=== PATIENT | male | born 1995 | race Caucasian/White ===

== ENCOUNTER 2018-04-11 01:07 | Emergency (ER) | payer BC ==
[2018-04-11] MEDS ORDERED: KETOROLAC 30 MG/ML INJ ONE (01:27)
--- NOTE | 2018-04-11 01:40 | EDPHYS ---
Physician Documentation [facility] Name: Cam Perez Age: 23 yrs Sex: Male : 1995 Arrival Date: 04/11/2018 Time: 01:08 Bed 6 Private MD: ED Physician Abdulaziz Ferro HPI: 04/11 01:26 This 23 yrs old Male presents to ER via Ambulatory with complaints of Ear tw4 Pain - right severe. 01:26 The patient presents with pain, a " 10" out of "10". The complaints affect the right tw4 ear. Onset: The symptoms/episode began/occurred 2 day(s) ago. Modifying factors: The symptoms are alleviated by nothing, the symptoms are aggravated by touching. Associated signs and symptoms: The patient has no apparent associated signs or symptoms. Severity of symptoms: At their worst the symptoms were moderate in the emergency department the symptoms. The patient has experienced a previous episode. The patient has been recently seen at an urgent care, yesterday. Historical: - Allergies: :22 No Known Allergies; jd3 - Home Meds: 01:22 None [Active]; jd3 - PMHx: :22 None; jd3 - PSHx: 01:22 None; jd3 - Immunization history:: Adult Immunizations up to date. - Social history:: Smoking status: Patient uses tobacco products, reported stopping about a month ago. - Ebola Screening: : Patient negative for fever greater than or equal to 101.5 degrees Fahrenheit, and additional compatible Ebola Virus Disease symptoms. ROS: 01:26 Constitutional: Negative for fever, chills, and weight loss. tw4 01:26 Neck: Negative for injury, pain, and swelling, Cardiovascular: Negative for chest pain, palpitations, and edema, Respiratory: Negative for shortness of breath, cough, wheezing, and pleuritic chest pain, Abdomen/GI: Negative for abdominal pain, nausea, vomiting, diarrhea, and constipation. 01:26 ENT: Positive for ear pain. Exam: 01:26 Constitutional: This is a well developed, well nourished patient who is awake, alert, tw4 and in no acute distress. Head/Face: Normocephalic, atraumatic. Eyes: Pupils equal round and reactive to light, extra-ocular motions intact. Lids and lashes normal. Conjunctiva and sclera are non-icteric and not injected. Cornea within normal limits. Periorbital areas with no swelling, redness, or edema. 01:26 ENT: External ear(s): are unremarkable, Ear canal(s): are normal, TM's: bulging, on the right, decreased mobility, on the right, dullness, on the right, erythema, that is moderate, Examination of the other ear shows no obvious abnormality. 01:26 Neck: External neck: is normal, ROM/movement: is normal, Lymph nodes: no appreciated lymphadenopathy. Vital Signs: 01:22 BP 138 / 88; Pulse 80; Resp 17 S; Temp 98.2(O); Pulse Ox 99% on R/A; Weight 104.33 kg jd3 (R); Height 5 ft. 10 in. (177.80 cm) (R); Pain 10/10; 01:22 Body Mass Index 33.00 (104.33 kg, 177.80 cm) jd3 MDM: 01:11 Patient medically screened. tw4 01:26 Differential diagnosis: otitis media, otitis externa, ruptured TM, acute otalgia, tw4 cerumen impaction, barotrauma . Data reviewed: vital signs, nurses notes. 01:40 Counseling: I had a detailed discussion with the patient and/or guardian regarding: the tw4 historical points, exam findings, and any diagnostic results supporting the discharge/admit diagnosis. Medication response: Toradol partially relieved the patient's pain. Response to treatment: the patient's symptoms have mildly improved after treatment, and as a result, I will discharge patient. Special discussion: I discussed with the patient/guardian in detail that at this point there is no indication for admission to the hospital. It is understood, however, that if the symptoms persist or worsen the patient needs to return immediately for re-evaluation. Based on the history and exam findings, there is no indication for further emergent testing or inpatient evaluation. I discussed with the patient/guardian the need to see the ENT specialist for further evaluation of the symptoms. ED course: Pt currently taking antibiotics as an outpatient will have patient followup with PCP for possible ENT referral. Administered Medications: 01:29 Drug: TORadol 60 mg Route: IM; Site: right gluteus; mg2 01:48 Follow up: Response: No adverse reaction jd3 Disposition: 04/11/18 01:39 Discharged to Home. Impression: Otalgia, right ear, Otitis media, unspecified, right ear. - Condition is Stable. - Discharge Instructions: Otitis Media, Adult. - Prescriptions for Ibuprofen 800 mg Oral Tablet - take 1 tablet by ORAL route every 8 hours As needed take with food; 30 tablet. Tylenol- Codeine #4 300-60 mg Oral Tablet - take 1 tablet by ORAL route every 6 hours As needed; 6 tablet. - Medication Reconciliation Form, Thank You Letter, Antibiotic Education, Prescription Opioid Use form. - Follow up: Private Physician; When: As needed; Reason: Recheck today's complaints, Continuance of care, Re-evaluation by your physician. - Problem is an ongoing problem. - Symptoms have improved. Signatures: Calderon Winslow RN RN jd3 Abdulaziz Ferro MD MD tw4 Abdiel Xie RN RN mg2 Corrections: (The following items were deleted from the chart) 01:49 01:39 04/11/2018 01:39 Discharged to Home. Impression: Otalgia, right ear; Otitis jd3 media, unspecified, right ear. Condition is Stable. Forms are Medication Reconciliation Form, Thank You Letter, Antibiotic Education, Prescription Opioid Use. Follow up: Private Physician; When: As needed; Reason: Recheck today's complaints, Continuance of care, Re-evaluation by your physician. Problem is an ongoing problem. Symptoms have improved. tw4
--- NOTE | 2018-04-11 01:40 | ER ---
Nurse's Notes [facility] Name: Cam Perez Age: 23 yrs Sex: Male : 1995 Arrival Date: 04/11/2018 Time: 01:08 Bed 6 Private MD: Diagnosis: Otalgia, right ear;Otitis media, unspecified, right ear Presentation: 04/11 01:18 Presenting complaint: Patient states: "I went to urgent care yesterday with this sever jd3 right ear pain I'm having and was told I have an ear infection and was given antibiotics and some ear drops. I don't think this is an ear infection because it hasn't gotten better and it is hurting even worse.". Transition of care: patient was not received from another setting of care. Onset of symptoms was April 09, 2018. Risk Assessment: Do you want to hurt yourself or someone else? Patient reports no desire to harm self or others. Initial Sepsis Screen: Does the patient meet any 2 criteria? No. Patient's initial sepsis screen is negative. Does the patient have a suspected source of infection? No. Patient's initial sepsis screen is negative. Care prior to arrival: None. 01:18 Method Of Arrival: Ambulatory jd3 01:18 Acuity: SARINA 4 jd3 Historical: - Allergies: 01:22 No Known Allergies; jd3 - Home Meds: 01:22 None [Active]; jd3 - PMHx: 01:22 None; jd3 - PSHx: 01:22 None; jd3 - Immunization history:: Adult Immunizations up to date. - Social history:: Smoking status: Patient uses tobacco products, reported stopping about a month ago. - Ebola Screening: : Patient negative for fever greater than or equal to 101.5 degrees Fahrenheit, and additional compatible Ebola Virus Disease symptoms. Screenin:14 Abuse screen: Denies threats or abuse. Denies injuries from another. Nutritional mg2 screening: No deficits noted. Tuberculosis screening: No symptoms or risk factors identified. Fall Risk None identified. Assessment: 01:23 General: Appears uncomfortable, Behavior is cooperative, appropriate for age, anxious. jd3 Pain: Complains of pain in right ear Pain currently is 10 out of 10 on a pain scale. Quality of pain is described as sharp, Pain began 2-3 days ago. Neuro: Level of Consciousness is awake, alert, obeys commands, Oriented to person, place, time, situation. Cardiovascular: Capillary refill < 3 seconds Patient's skin is warm and dry. Respiratory: Airway is patent Respiratory effort is even, unlabored, Respiratory pattern is regular, symmetrical. GI: No signs and/or symptoms were reported involving the gastrointestinal system. : No signs and/or symptoms were reported regarding the genitourinary system. EENT: Tympanic membrane reddened on right ear Ear canal clear on left ear and right ear. Derm: Skin is intact, Skin is dry, Skin is normal, Skin temperature is warm. Musculoskeletal: Circulation, motion, and sensation intact. Range of motion: intact in all extremities. 01:46 Reassessment: Patient appears in no apparent distress at this time. Patient and/or jd3 family updated on plan of care and expected duration. Pain level reassessed. Patient is alert, oriented x 3, equal unlabored respirations, skin warm/dry/pink. pt reported understanding of discharge instructions, even and steady gait upon discharge. Vital Signs: 01:22 BP 138 / 88; Pulse 80; Resp 17 S; Temp 98.2(O); Pulse Ox 99% on R/A; Weight 104.33 kg jd3 (R); Height 5 ft. 10 in. (177.80 cm) (R); Pain 10/10; 01:22 Body Mass Index 33.00 (104.33 kg, 177.80 cm) jd3 ED Course: 01:08 Patient arrived in ED. am2 01:11 Abdulaziz Ferro MD is Attending Physician. tw4 01:15 Patient has correct armband on for positive identification. Bed in low position. Noise mg2 minimized. 01:18 Calderon Winslow, STEPHEN is Primary Nurse. jd3 01:21 Triage completed. jd3 01:47 No provider procedures requiring assistance completed. Patient did not have IV access jd3 during this emergency room visit. 01:48 Arm band placed on. jd3 Administered Medications: 01:29 Drug: TORadol 60 mg Route: IM; Site: right gluteus; mg2 01:48 Follow up: Response: No adverse reaction jd3 Outcome: 01:39 Discharge ordered by . tw4 01:48 Discharged to home ambulatory. jd3 01:48 Condition: stable 01:48 Discharge instructions given to patient, Instructed on discharge instructions, follow up and referral plans. medication usage, Demonstrated understanding of instructions, follow-up care, medications, Prescriptions given X 2. 01:49 Patient left the ED. jd3 Signatures: Tiny Melendez Jonathon RN RN jd3 Abdulaziz Ferro MD MD tw4 Abdiel Xie RN RN mg2
== END 2018-04-11 01:49 | disposition home or self-care (01) ==
LOC: ER 01:07
DX: H66.91 Otitis media, unspecified, right ear (principal)
CPT/HCPCS: 96372; 99283

== ENCOUNTER 2018-04-26 22:33 | Emergency (ER) | payer BC ==
[2018-04-26] MEDS ORDERED: MECLIZINE HCL 12.5 MG TAB ONE (23:33)
[2018-04-26] MEDS ORDERED: ONDANSETRON 4 MG (ODT) TAB ONE (23:33)
[2018-04-27] MEDS ORDERED: DIAZEPAM 5 MG TABLET ONE (01:02)
[2018-04-27] MEDS ORDERED: AMOX/K CLAV 875 MG TAB ONE (01:03)
[2018-04-27 01:16] LABS: Urine Blood NEGATIVE (NEG); Urine Glucose NEGATIVE (NEG); Urine Protein NEGATIVE (NEG); Urine pH 6.5 (5.0-7.0)
--- NOTE | 2018-04-27 01:48 | EDPHYS ---
Physician Documentation [facility] Name: Cam Perez Age: 23 yrs Sex: Male : 1995 Arrival Date: 04/26/2018 Time: 22:34 Bed 30 Private MD: ED Physician Tom Rodríguez HPI: 04/26 23:24 This 23 yrs old Male presents to ER via Ambulatory with complaints of jmm Dizziness. 23:24 The patient presents with dizziness. Onset: The symptoms/episode began/occurred jmm acutely, 2 day(s) ago. 04/27 01:05 Modifying factors: The symptoms are alleviated by lying down, the symptoms are jmm aggravated by movement of head, standing up, changing position. Associated signs and symptoms:. This is a 23 year old male with no chronic medical conditions that presents to the ED with dizziness for the past 2 days. Symptoms developed acutely 2 days ago and are exacerbated with movement. Patient states that he feels like he is drunk. Patient recently finished antibiotic therapy for otitis media. . Historical: - Allergies: 04/26 22:47 No Known Allergies; ao - Home Meds: 22:47 None [Active]; ao - PMHx: 22:47 Otitis Media; ao - PSHx: 22:47 None; ao - Immunization history:: Adult Immunizations unknown, Last tetanus immunization: unknown. - Social history:: Smoking status: Patient uses tobacco products, smokes one-half pack cigarettes per day, Patient uses alcohol, occasionally. Patient/guardian denies using street drugs, IV drugs. - Ebola Screening: : Patient negative for fever greater than or equal to 101.5 degrees Fahrenheit, and additional compatible Ebola Virus Disease symptoms Patient denies exposure to infectious person Patient denies travel to an Ebola-affected area in the 21 days before illness onset. ROS: 04/27 01:05 Constitutional: Negative for fever, chills, and weight loss. jmm Cardiovascular: Negative for chest pain, palpitations, and edema, Respiratory: Negative for shortness of breath, cough, wheezing, and pleuritic chest pain, Abdomen/GI: Negative for abdominal pain, nausea, vomiting, diarrhea, and constipation, Back: Negative for injury and pain, : Negative for injury, bleeding, discharge, and swelling, MS/Extremity: Negative for injury and deformity, Skin: Negative for injury, rash, and discoloration. ENT: Positive for ear pain. Neuro: Positive for dizziness. All other systems are negative. Exam: 01:05 Head/Face: atraumatic. [facility] 01:05 Cardiovascular: Regular rate and rhythm. No gallops, murmurs, or rubs. Full/Equal distal pulses. Respiratory: Lungs have equal breath sounds bilaterally, clear to auscultation. No rales, rhonchi or wheezes noted. No increased work of breathing, no retractions or nasal flaring. Abdomen/GI: Soft, non-tender, with normal bowel sounds. No distension or tympany. No guarding or rebound. No evidence of tenderness throughout. 01:05 Constitutional: The patient appears in no acute distress, alert, awake. 01:05 Eyes: Nystagmus: horizontal nystagmus noted, fatigable . 01:05 Neck: ROM/movement: is normal. 01:05 Neuro: Orientation: is normal, Mentation: is normal, Memory: is normal, Cerebellar function: normal finger to nose testing. 01:05 Psych: Behavior/mood is pleasant, cooperative. Vital Signs: 04/26 22:48 BP 130 / 85; Pulse 61; Resp 16; Temp 97.9; Pulse Ox 97% on R/A; Weight 106.59 kg (R); ao Height 6 ft. 10 in. (208.28 cm) (R); Pain 0/10; 04/27 00:09 BP 128 / 83; Pulse 62; Resp 18; Pulse Ox 100% on R/A; Pain 0/10; ao 01:20 BP 104 / 59; Pulse 55; Resp 16; Pulse Ox 98% on R/A; Pain 0/10; ao 02:01 BP 108 / 62; Pulse 58; Resp 16; Pulse Ox 99% on R/A; Pain 0/10; ao 04/26 22:48 Body Mass Index 24.57 (106.59 kg, 208.28 cm) ao MDM: 04/26 23:08 Patient medically screened. [facility] 04/27 01:46 Data reviewed: vital signs, nurses notes, radiologic studies, CT scan. Counseling: I heavenly had a detailed discussion with the patient and/or guardian regarding: the historical points, exam findings, and any diagnostic results supporting the discharge/admit diagnosis, lab results, radiology results, the need for outpatient follow up, to return to the emergency department if symptoms worsen or persist or if there are any questions or concerns that arise at home. Response to treatment: the patient's symptoms have mildly improved after treatment. 04/27 01:12 Order name: Urine Dipstick--Ancillary (enter results); Complete Time: 01:18 eb 04/26 23:23 Order name: CT Head Brain wo Cont heavenly Administered Medications: 04/26 23:35 Drug: Meclizine 50 mg Route: PO; ao 04/27 00:39 Follow up: Response: No adverse reaction ao 04/26 23:35 Drug: Zofran 4 mg Route: PO; ao 04/27 00:39 Follow up: Response: No adverse reaction ao 01:06 Drug: Valium 5 mg Route: PO; ao 02:00 Follow up: Response: No adverse reaction ao 01:06 Drug: Augmentin 875 mg Route: PO; ao 02:00 Follow up: Response: No adverse reaction ao Disposition: 04/27/18 01:48 Discharged to Home. Impression: Other peripheral vertigo, right ear. - Condition is Stable. - Discharge Instructions: Dizziness, Vertigo, Kimmy Maneuver Self-Care. - Prescriptions for Augmentin 875- 125 mg Oral Tablet - take 1 tablet by ORAL route every 12 hours for 10 days; 20 tablet. Meclizine 25 mg Oral Tablet - take 1 tablet by ORAL route every 8 hours As needed; 30 tablet. - Medication Reconciliation Form, Thank You Letter, Antibiotic Education, Prescription Opioid Use form. - Follow up: Shana Tomlinson MD; When: 1 - 2 days; Reason: Continuance of care. Addendum: 04/28/2018 09:56 Co-signature as Attending Physician, Tom Rodríguez MD I agree with the assessment and c jacob plan of care. Signatures: Dispatcher [employer] EDTom Calzada MD MD cha Mickail, Joel, PA PA jmm Ortiz, Alex, RN RN ao Corrections: (The following items were deleted from the chart) 04/27 01:18 01:05 Eyes: Nystagmus: horizontal nystagmus noted, heavenly burdick 02:02 01:48 04/27/2018 01:48 Discharged to Home. Impression: Other peripheral vertigo, right ao ear. Condition is Stable. Forms are Medication Reconciliation Form, Thank You Letter, Antibiotic Education, Prescription Opioid Use. Follow up: Shana Tomlinson; When: 1 - 2 days; Reason: Continuance of care. heavenly
--- NOTE | 2018-04-27 01:48 | ER ---
Nurse's Notes [facility] Name: Cam Perez Age: 23 yrs Sex: Male : 1995 Arrival Date: 04/26/2018 Time: 22:34 Bed 30 Private MD: Diagnosis: Other peripheral vertigo, right ear Presentation: 04/26 22:44 Presenting complaint: Patient states: "I feel like I'm drunk but I'm not." Patient ao complains of dizziness. Patient reports a recent ear infection that was treated with unknown antibiotic. Patient reports ear infections has resolved. Transition of care: patient was not received from another setting of care. Onset of symptoms was April 25, 1900. Risk Assessment: Do you want to hurt yourself or someone else? Patient reports no desire to harm self or others. Initial Sepsis Screen: Does the patient meet any 2 criteria? No. Patient's initial sepsis screen is negative. Does the patient have a suspected source of infection? No. Patient's initial sepsis screen is negative. Care prior to arrival: None. 22:44 Method Of Arrival: Ambulatory ao 22:44 Acuity: SARINA 3 ao Historical: - Allergies: 22:47 No Known Allergies; ao - Home Meds: 22:47 None [Active]; ao - PMHx: 22:47 Otitis Media; ao - PSHx: 22:47 None; ao - Immunization history:: Adult Immunizations unknown, Last tetanus immunization: unknown. - Social history:: Smoking status: Patient uses tobacco products, smokes one-half pack cigarettes per day, Patient uses alcohol, occasionally. Patient/guardian denies using street drugs, IV drugs. - Ebola Screening: : Patient negative for fever greater than or equal to 101.5 degrees Fahrenheit, and additional compatible Ebola Virus Disease symptoms Patient denies exposure to infectious person Patient denies travel to an Ebola-affected area in the 21 days before illness onset. Screenin:50 Abuse screen: Denies threats or abuse. Denies injuries from another. Nutritional ao screening: No deficits noted. Tuberculosis screening: No symptoms or risk factors identified. Fall Risk None identified. Assessment: 22:49 General: Appears in no apparent distress. comfortable, Behavior is calm, cooperative, ao appropriate for age. Pain: Denies pain. Neuro: Level of Consciousness is awake, alert, obeys commands, Oriented to person, place, time, situation, Appropriate for age Moves all extremities. Speech is normal, Facial symmetry appears normal. Cardiovascular: Capillary refill < 3 seconds Patient's skin is warm and dry. Respiratory: Airway is patent Respiratory effort is even, unlabored, Respiratory pattern is regular, symmetrical. GI: Abdomen is obese. : No signs and/or symptoms were reported regarding the genitourinary system. EENT: No signs and/or symptoms were reported regarding the EENT system. Derm: Skin is intact, Skin is pink, warm \\T\\ dry. Skin temperature is warm. Musculoskeletal: Circulation, motion, and sensation intact. Range of motion:. 04/27 00:09 Reassessment: Patient appears in no apparent distress at this time. Patient and/or ao family updated on plan of care and expected duration. Pain level reassessed. Patient is alert, oriented x 3, equal unlabored respirations, skin warm/dry/pink. 01:20 Reassessment: Patient appears in no apparent distress at this time. Patient and/or ao family updated on plan of care and expected duration. Pain level reassessed. Patient is alert, oriented x 3, equal unlabored respirations, skin warm/dry/pink. Vital Signs: 04/26 22:48 BP 130 / 85; Pulse 61; Resp 16; Temp 97.9; Pulse Ox 97% on R/A; Weight 106.59 kg (R); ao Height 6 ft. 10 in. (208.28 cm) (R); Pain 0/10; 04/27 00:09 BP 128 / 83; Pulse 62; Resp 18; Pulse Ox 100% on R/A; Pain 0/10; ao 01:20 BP 104 / 59; Pulse 55; Resp 16; Pulse Ox 98% on R/A; Pain 0/10; ao 02:01 BP 108 / 62; Pulse 58; Resp 16; Pulse Ox 99% on R/A; Pain 0/10; ao 04/26 22:48 Body Mass Index 24.57 (106.59 kg, 208.28 cm) ao ED Course: 04/26 22:34 Patient arrived in ED. es 22:44 Christian Potts, RN is Primary Nurse. ao 22:46 Triage completed. ao 22:46 Arm band placed on right wrist. Patient placed in an exam room, on a stretcher, on ao pulse oximetry, Patient notified of wait time. 22:51 Patient has correct armband on for positive identification. Pulse ox on. NIBP on. ao 23:07 Kahlil Lizarraga PA is PHCP. jmm 23:07 Tom Rodríguez MD is Attending Physician. jmm 23:[address] via wheelchair. kw1 23:51 CT completed. Patient tolerated procedure well. Patient moved back from CT. kw1 23:55 CT Head Brain wo Cont In Process Unspecified. EDMS 04/27 01:47 Shana Tomlinson MD is Referral Physician. jmm 02:00 No provider procedures requiring assistance completed. Patient did not have IV access ao during this emergency room visit. Administered Medications: 04/26 23:35 Drug: Meclizine 50 mg Route: PO; ao 04/27 00:39 Follow up: Response: No adverse reaction ao 04/26 23:35 Drug: Zofran 4 mg Route: PO; ao 04/27 00:39 Follow up: Response: No adverse reaction ao 01:06 Drug: Valium 5 mg Route: PO; ao 02:00 Follow up: Response: No adverse reaction ao 01:06 Drug: Augmentin 875 mg Route: PO; ao 02:00 Follow up: Response: No adverse reaction ao Outcome: 01:48 Discharge ordered by . [facility] 02:01 Discharged to home ambulatory. ao 02:01 Condition: stable 02:01 Discharge instructions given to patient, Instructed on discharge instructions, follow up and referral plans. Demonstrated understanding of instructions, follow-up care, medications, Prescriptions given X 2. 02:02 Patient left the ED. ao Signatures: Dispatcher [employer] EDMS Kahlil Lizarraga PA PA jmm Salyer, Edna es Ortiz, Alex, RN RN ao Aydee Donahue kw1
--- NOTE | 2018-04-27 12:16 | RAD REPORT ---
EXAM DESCRIPTION: CT - Head Brain Wo Cont - 04/27/2018 7:24 am CLINICAL HISTORY: DIZZINESS Otitis media. Headache. COMPARISON: No comparisons TECHNIQUE: All CT scans are performed using dose optimization technique as appropriate and may inclu de automated exposure control or mA/KV adjustment according to patient size. FINDINGS: No intracranial hemorrhage, hydrocephalus or extra-axial fluid collection.No areas of brai n edema or evidence of midline shift. Fluid is noted in the right mastoid air cell suggesting mastoiditis. The paranasal sinuses and mastoi ds are otherwise clear. The calvarium is intact. IMPRESSION: No acute intracranial abnormality. Right-sided mastoiditis possible.
== END 2018-04-27 02:02 | disposition home or self-care (01) ==
LOC: ER 22:33
DX: H81.391 Other peripheral vertigo, right ear (principal); F17.210 Nicotine dependence, cigarettes, uncomplicated
CPT/HCPCS: 70450; 81003; 99284

== ENCOUNTER 2020-08-11 21:35 | Emergency (ER) | payer BC, OTHER ==
[2020-08-11 23:19] LABS: Absolute Lymphocytes (CBC) 2.4 K/uL (0.7-4.9); Basophils % 0.5 % (0-1.3); Hematocrit 44.4 % (39.6-49.0); Lymphocytes % 26.8 % (15.3-44.8); MPV 9.3 fL (7.6-11.3); RBC Red Blood Cell Count 5.23 M/uL (4.33-5.43)
[2020-08-11 23:20] LABS: Protime INR 0.96
[2020-08-11 23:40] LABS: ALT/SGPT 43 U/L (12-78); AST/SGOT 19 U/L (15-37); Albumin 4.5 g/dL (3.4-5.0); Alkaline Phosphatase 84 U/L (45-117); BUN Blood Urea Nitrogen 17 mg/dL (7-18); Bicarbonate 24 mmol/L (21-32); Bilirubin Direct 0.1 mg/dL (0-0.2); Bilirubin Total 0.5 mg/dL (0.2-1.0); Glucose Level 93 mg/dL (74-106); Magnesium 2.1 mg/dL (1.8-2.4); NT PRO-BNP 23 pg/mL (<125); Potassium 3.7 mmol/L (3.5-5.1); Protein, Total 8.4 g/dL (6.4-8.2); Sodium Level 141 mmol/L (136-145); Troponin (Emerg Dept Use Only) < 0.02 ng/mL (0.0-0.045)
--- NOTE | 2020-08-12 00:21 | ER ---
Nurse's Notes [facility] Name: Cam Perez Age: 25 yrs Sex: Male : 1995 Arrival Date: 08/11/2020 Time: 21:36 Bed 23 Private MD: Diagnosis: Vertigo of central origin, unspecified ear;Other idiopathic peripheral autonomic neuropathy Presentation: 08/11 21:42 Chief complaint: Patient states: Dizziness since Saturday. Right arm heaviness started ll1 today. Had CT scan at [place] Saturday, was negative. Diagnosed with vertigo. Noticed twitching to right arm and leg. Grasps equally strong. Gait steady. Smile symmetrical. No neuro deficits noted. Coronavirus screen: Client denies travel out of the [place] in the last 14 days. Client presents with at least one sign or symptom that may indicate coronavirus-19. Standard/surgical mask placed on the client. Coronavirus screen: Client reports previous positive COVID test result. Ebola Screen: Patient denies travel to an Ebola-affected area in the 21 days before illness onset. Initial Sepsis Screen: Does the patient meet any 2 criteria? No. Patient's initial sepsis screen is negative. Risk Assessment: Do you want to hurt yourself or someone else? Patient reports no desire to harm self or others. Onset of symptoms was August 06, 2020. 21:42 Method Of Arrival: Ambulatory ll1 21:42 Acuity: SARINA 3 ll1 Historical: - Allergies: 21:45 No Known Allergies; ll1 - PSHx: 21:45 None; ll1 - Immunization history:: Flu vaccine is not up to date. - Social history:: Smoking status: Patient reports the use of cigarette tobacco products, denies chronic smoking, but will smoke occasionally. Screenin:09 Abuse screen: Denies threats or abuse. Denies injuries from another. Nutritional aj1 screening: No deficits noted. Tuberculosis screening: No symptoms or risk factors identified. 08/12 00:42 Fall Risk None identified. aj1 Assessment: 08/11 22:09 General: Appears in no apparent distress. comfortable, Behavior is calm, cooperative, aj1 appropriate for age. Pain: Denies pain. Neuro: Level of Consciousness is awake, alert, obeys commands. Neuro: Oriented to person, place, time, situation, Instant [employer] Supervisor are equal bilaterally Moves all extremities. Weakness Gait is steady, Speech is normal, Facial symmetry appears normal, Reports dizziness, Patient states that his right arm feels "heavy" denies pain or weakness to right arm. Cardiovascular: Patient's skin is warm and dry. Respiratory: Airway is patent Respiratory effort is even, unlabored, Respiratory pattern is regular, symmetrical. GI: No signs and/or symptoms were reported involving the gastrointestinal system. : No signs and/or symptoms were reported regarding the genitourinary system. EENT: No signs and/or symptoms were reported regarding the EENT system. Derm: No signs and/or symptoms reported regarding the dermatologic system. Skin is pink, warm \\T\\ dry. normal. Musculoskeletal: No signs and/or symptoms reported regarding the musculoskeletal system. 23:21 Reassessment: Patient appears in no apparent distress at this time. No changes from 1 previously documented assessment. Patient and/or family updated on plan of care and expected duration. Pain level reassessed. Patient is alert, oriented x 3, equal unlabored respirations, skin warm/dry/pink. 08/12 00:28 Reassessment: Patient appears in no apparent distress at this time. No changes from aj1 previously documented assessment. Patient and/or family updated on plan of care and expected duration. Pain level reassessed. Patient is alert, oriented x 3, equal unlabored respirations, skin warm/dry/pink. Discharge pending MD explaining discharge instruction and diagnosis to patient. Vital Signs: 08/11 21:42 BP 131 / 78; Pulse 75; Resp 18; Temp 98.2; Pulse Ox 98% ; Weight 99.79 kg; Height 5 ft. ll1 10 in. (177.80 cm); Pain 0/10; 23:30 BP 109 / 70; Pulse 53; Resp 18; Pulse Ox 98% on R/A; aj1 08/12 00:29 BP 128 / 79; Pulse 55; Resp 18; Pulse Ox 98% on R/A; aj1 08/11 21:42 Body Mass Index 31.57 (99.79 kg, 177.80 cm) ll1 ED Course: 08/11 21:36 Patient arrived in ED. cl3 21:45 Triage completed. ll1 21:45 Arm band placed on. ll1 22:09 Luz Joseph RN is Primary Nurse. aj1 22:09 Patient has correct armband on for positive identification. Bed in low position. Call aj1 light in reach. Side rails up X 1. Pulse ox on. NIBP on. 22:09 No provider procedures requiring assistance completed. aj1 22:38 Abdulaziz Ferro MD is Attending Physician. tw4 23:05 Initial lab(s) drawn, by me, sent to lab. Inserted saline lock: 20 gauge in right jp3 antecubital area, using aseptic technique. Blood collected. 23:05 Patient maintains SpO2 saturation greater than 95% on room air. jp3 23:18 EKG done, by ED staff, reviewed by Abdulaziz Ferro MD. jp3 23:45 CT Head C Spine In Process Unspecified. EDMS 08/12 00:42 IV discontinued, intact, bleeding controlled, No redness/swelling at site. Pressure aj1 dressing applied. Administered Medications: No medications were administered Outcome: 00:21 Discharge ordered by . tw4 00:42 Discharged to home ambulatory, with family. aj1 00:42 Condition: good 00:42 Discharge instructions given to patient, family, Instructed on discharge instructions, follow up and referral plans. Demonstrated understanding of instructions, follow-up care. 00:43 Patient left the ED. aj1 Signatures: Dispatcher [employer] EDMS Luz Joseph RN RN ajAbdulaziz Poole MD MD tw4 Justin Onofre 3 Allen Orozco 3 Beba Orozco, RN RN ll1 Corrections: (The following items were deleted from the chart) 08/11 21:56 21:42 Chief complaint: Patient states: Dizziness since Saturday. Right arm heaviness ll1 started today. Had CT scan at [place] Saturday, was negative. Diagnosed with vertigo. Noticed twitching to right arm and leg ll1
--- NOTE | 2020-08-12 00:21 | EDPHYS ---
Physician Documentation [facility] Name: Cam Perez Age: 25 yrs Sex: Male : 1995 Arrival Date: 08/11/2020 Time: 21:36 Bed 23 Private MD: ED Physician Abdulaziz Ferro HPI: 08/12 06:22 This 25 yrs old Male presents to ER via Ambulatory with complaints of tw4 Dizziness, Arm Pain. 06:22 The patient presents with vertigo. Onset: The symptoms/episode began/occurred today. tw4 Context: occurred at home, occurred while the patient was. Modifying factors: The symptoms are alleviated by nothing, the symptoms are aggravated by nothing. Associated signs and symptoms: The patient has no apparent associated signs or symptoms. Severity of symptoms: At their worst the symptoms were moderate in the emergency department the symptoms are unchanged. The patient has not experienced similar symptoms in the past. Historical: - Allergies: 08/11 21:45 No Known Allergies; ll1 - PSHx: 21:45 None; ll1 - Immunization history:: Flu vaccine is not up to date. - Social history:: Smoking status: Patient reports the use of cigarette tobacco products, denies chronic smoking, but will smoke occasionally. ROS: 08/12 06:22 Constitutional: Negative for fever, chills, and weight loss, Eyes: Negative for injury, tw4 pain, redness, and discharge, Cardiovascular: Negative for chest pain, palpitations, and edema, Respiratory: Negative for shortness of breath, cough, wheezing, and pleuritic chest pain, Abdomen/GI: Negative for abdominal pain, nausea, vomiting, diarrhea, and constipation, Back: Negative for injury and pain, Skin: Negative for injury, rash, and discoloration. MS/Extremity: Negative for injury and deformity. Neuro: Positive for dizziness, numbness. Exam: 06:22 Constitutional: This is a well developed, well nourished patient who is awake, alert, tw4 and in no acute distress. Head/Face: Normocephalic, atraumatic. Eyes: Pupils equal round and reactive to light, extra-ocular motions intact. Lids and lashes normal. Conjunctiva and sclera are non-icteric and not injected. Cornea within normal limits. Periorbital areas with no swelling, redness, or edema. Chest/axilla: Normal chest wall appearance and motion. Nontender with no deformity. No lesions are appreciated. Cardiovascular: Regular rate and rhythm with a normal S1 and S2. No gallops, murmurs, or rubs. Normal PMI, no JVD. No pulse deficits. Respiratory: Lungs have equal breath sounds bilaterally, clear to auscultation and percussion. No rales, rhonchi or wheezes noted. No increased work of breathing, no retractions or nasal flaring. Abdomen/GI: Soft, non-tender, with normal bowel sounds. No distension or tympany. No guarding or rebound. No evidence of tenderness throughout. Vital Signs: 08/11 21:42 BP 131 / 78; Pulse 75; Resp 18; Temp 98.2; Pulse Ox 98% ; Weight 99.79 kg; Height 5 ft. ll1 10 in. (177.80 cm); Pain 0/10; 23:30 BP 109 / 70; Pulse 53; Resp 18; Pulse Ox 98% on R/A; aj1 08/12 00:29 BP 128 / 79; Pulse 55; Resp 18; Pulse Ox 98% on R/A; aj1 08/11 21:42 Body Mass Index 31.57 (99.79 kg, 177.80 cm) ll1 MDM: 08/11 22:38 Patient medically screened. tw4 08/12 06:24 Data reviewed: vital signs, nurses notes. Data reviewed: lab test result(s), cardiac tw4 enzymes, CBC, electrolytes, hepatic panel, EKG, radiologic studies, plain films. Data interpreted: Pulse oximetry: Interpretation: normal. Counseling: I had a detailed discussion with the patient and/or guardian regarding: the historical points, exam findings, and any diagnostic results supporting the discharge/admit diagnosis. Special discussion: I discussed with the patient/guardian in detail that at this point there is no indication for admission to the hospital. It is understood, however, that if the symptoms persist or worsen the patient needs to return immediately for re-evaluation. 08/11 22:52 Order name: Basic Metabolic Panel; Complete Time: 23:44 tw4 08/11 23:44 Interpretation: Normal except: CL 109; GFR 88. tw4 08/11 22:52 Order name: CBC with Diff; Complete Time: 23:44 tw4 08/11 23:45 Interpretation: Within normal limits. 08/11 22:52 Order name: LFT's; Complete Time: 23:44 08/11 23:45 Interpretation: Normal except: TP 8.4; GLOB 3.9. 08/11 22:52 Order name: Magnesium; Complete Time: 23:44 08/11 23:45 Interpretation: Within normal limits: MG 2.1. 08/11 22:52 Order name: NT PRO-BNP; Complete Time: 23:44 08/11 23:45 Interpretation: Within normal limits: NT PRO-BNP 23. 08/11 22:52 Order name: PT-INR; Complete Time: 23:44 08/11 23:45 Interpretation: Within normal limits: PT 11.3. 08/11 22:52 Order name: Troponin (emerg Dept Use Only); Complete Time: 23:44 08/11 22:52 Order name: EKG; Complete Time: 22:53 08/11 22:52 Order name: Cardiac monitoring; Complete Time: 23:09 08/11 22:52 Order name: EKG - Nurse/Tech; Complete Time: 23:17 08/11 22:52 Order name: IV Saline Lock; Complete Time: 23:09 08/11 22:52 Order name: Labs collected and sent; Complete Time: 23:09 08/11 22:52 Order name: O2 Per Protocol; Complete Time: 23:09 08/11 22:52 Order name: CT Head C Spine 08/11 22:52 Order name: O2 Sat Monitoring; Complete Time: 23:09 4 EC:22 Rate is 56 beats/min. Rhythm is regular, Sinus bradycardia. QRS [place] is Normal. CO tw4 interval is normal. QRS interval is normal. QT interval is normal. No Q waves. T waves are Normal. No ST changes noted. Clinical impression: Sinus bradycardia. Interpreted by me. Reviewed by me. Administered Medications: No medications were administered Disposition: 08/12/20 00:21 Discharged to Home. Impression: Vertigo of central origin, unspecified ear, Other idiopathic peripheral autonomic neuropathy. - Condition is Stable. - Discharge Instructions: Dizziness, Vertigo, Peripheral Neuropathy. - Medication Reconciliation Form, Thank You Letter, Antibiotic Education, Prescription Opioid Use form. - Follow up: Private Physician; When: Upon discharge from the Emergency Department; Reason: Recheck today's complaints, Continuance of care, Re-evaluation by your physician. - Problem is new. - Symptoms have improved. Signatures: Dispatcher [employer] EDLuz Mane RN RN aj1 Abdulaziz Ferro MD MD tw4 Beba Orozco RN RN ll1 Corrections: (The following items were deleted from the chart) 00:43 00:21 08/12/2020 00:21 Discharged to Home. Impression: Vertigo of central origin, aj1 unspecified ear; Other idiopathic peripheral autonomic neuropathy. Condition is Stable. Forms are Medication Reconciliation Form, Thank You Letter, Antibiotic Education, Prescription Opioid Use. Follow up: Private Physician; When: Upon discharge from the Emergency Department; Reason: Recheck today's complaints, Continuance of care, Re-evaluation by your physician. Problem is new. Symptoms have improved. tw4
[2020-08-12 01:25] VITALS: TEMP 98.2; O2SAT 98
[2020-08-12 01:28] VITALS: BP 128/79
--- NOTE | 2020-08-12 11:39 | EKG ---
Test Date: 2020-08-11 Test Time: 23:16:38 Fur Buyer: BASSEM MEASUREMENT RESULTS: Intervals: Rate: 56 NV: 138 QRSD: 84 QT: 412 QTc: 397 [place]: P: 46 NV: 138 QRS: 68 T: 44 INTERPRETIVE STATEMENTS: Sinus bradycardia Otherwise normal ECG No previous ECG available for comparison Electronically Signed On 08-12-20 11:37:17 CDT by Dino Correia
--- NOTE | 2020-08-16 10:37 | RAD REPORT ---
EXAM DESCRIPTION: CT - [id number] - 08/12/2020 6:52 am CLINICAL HISTORY: NUMBNESS/TINGLING COMPARISON: None available TECHNIQUE: Axial CT of the head obtained from the skull apex to the skull base without contrast. Axi al CT images of the cervical spine obtained from the skull base through the thoracic inlet. Sagittal and coronal reformatted images available. FINDINGS: CT head: No acute intracranial hemorrhage identified. No mass, mass effect, shift of the midline, abnormal ext ra-axial fluid collection or CT evidence of acute ischemic change identified. The ventricular system is unremarkable. No acute abnormalities of the supratentorial white matter, basal ganglia, cerebell um, or brainstem. The visualized paranasal sinuses and the mastoids are clear. No skull fracture identified. Visual ized orbits and globes are unremarkable. Cervical CT: Straightening of the cervical lordosis may be secondary to patient positioning. The atlantoaxial, a tlantodental, and occipitoatlantal intervals are preserved. No fracture identified. Vertebral body height preserved. Prevertebral soft tissues are unremarkable. Intervertebral disc height preserved. Visualized skull base is intact. No fracture of the visualized facial bones. Visualized mastoid air c ells and paranasal sinuses are well aerated. Curvilinear calcification in the right thyroid. No cervical lymphadenopathy. No pneumothorax in the visualized lung apices. IMPRESSION: 1. No acute intracranial abnormality. 2. No acute fracture or subluxation of the cervical spine. 3. This exam was performed according to our departmental dose-optimization program, which includes autom ated exposure control, adjustment of the mA and/or kV according to patient size and/or use of iterati ve reconstruction technique. Electronically signed by: Kyaw Jauregui 08/11/2020 11:57 PM CDT Due to temporary technical issues with the PACS/Fluency reporting system, reports are being signed by the in house radiologist without review as a courtesy to ensure prompt reporting. The interpreting r adiologist is fully responsible for the content of the report.
--- OUTSIDE RECORDS SUMMARY | 2020-08-17 18:16 | XMS REPORT | Continuity of Care Document ---
:1995 Author Organization [facility] t Address [facility] [place] [address] Care Team Providers Name Role Phone Gary Barbosa MD Attending Clinician Problems This patient has no known problems. Allergies, Adverse Reactions, Alerts This patient has no known allergies or adverse reactions. Medications This patient has no known medications. Procedures This patient has no known procedures. Encounters Start End Encounter Admission Attending Care Care Encounter Source Date/Time Date/Time Type Type Clinicians Facility Department ID 2020-08-09 2020-08-09 Emergency [facility] [id number] 07:26:00 09:50:00 Luke Valdes [id number] [place] [id number] [place] [id number] Results This patient has no known results.
--- OUTSIDE RECORDS SUMMARY | 2020-08-17 18:16 | XMS REPORT | Summary of Care ---
:1995 Author Organization [facility] Address [address] [place] [id number] Care Team Providers Name Role Phone Pcp, Patient Does Not Have A Primary Care Provider +[id number] Reason for Referral MRI/CAT Scan (STAT) Status Reason Specialty Diagnoses / Referred By Referred To Procedures Contact Contact New Request Diagnostic Diagnoses Dizziness Luke Barbosa Radiology Procedures CT HEAD WO CONTRAST MD Gary [address] [address] Reason for Visit Reason Comments Dizziness Auth/Cert Status Reason Specialty Diagnoses / Referred By Referred To Procedures Contact Contact Emergency Medicine Diagnoses DIZZINESS [facility] Emergency Dept [address] [place] [address] Fax: Encounter Details Date Type Department Care Team Description 08/09/2020 Emergency ADC-Emergency Luke Barbosa, Vertigo (Primary Dx); Department Dizziness [address] [place] [address] [facility] [phone] [place], [place] [id number] Allergies No Known Allergiesdocumented as of this encounter (statuses as of 08/09/2020) Medications Medication Sig Dispensed Refills Start Date End Date Status meclizine 25 mg Take 1 tablet by 20 tablet 0 08/09/2020 Active tabletIndications: mouth every 6 Vertigo (six) hours as needed for Dizziness. proMETHazine 25 mg Take 1 tablet by 20 tablet 0 08/09/2020 Active tabletIndications: mouth every 6 Vertigo (six) hours as needed for Nausea and Vomiting (N/V) (and/or Dizziness). documented as of this encounter (statuses as of 08/09/2020) Active Problems No known active problemsdocumented as of this encounter (statuses as of 08/09/2020) Immunizations Name Administration Dates Next Due Td 06/25/2015 documented as of this encounter Social History Tobacco Use Types Packs/Day Years Used Date Never Assessed Sex Assigned at Date Recorded Not on file COVID-19 Exposure Response Date Recorded In the last month, have you been in contact with Yes 08/09/2020 7:22 AM CDT someone who was confirmed or suspected to have Coronavirus / COVID-19? documented as of this encounter Last Filed Vital Signs Vital Sign Reading Time Taken Comments Blood Pressure 160/75 08/09/2020 9:30 AM CDT Pulse 51 08/09/2020 9:30 AM CDT Temperature 36.8 C (98.2 F) 08/09/2020 7:23 AM CDT Respiratory Rate 18 08/09/2020 9:30 AM CDT Oxygen Saturation 99% 08/09/2020 9:30 AM CDT Inhaled Oxygen Concentration - - Weight 99.8 kg (220 lb) 08/09/2020 7:23 AM CDT Height - - Body Mass Index 30.68 06/25/2015 3:23 AM CDT documented in this encounter Discharge Instructions Luke Ramírez MD - 08/09/2020DIAGNOSIS 1. DIZZINESS, SUSPICIOUS FOR VERTIGO NO LIFE-THREATENING FINDINGS ON TODAY'S EXAM. PROCEDURES IN THE ER TODAY: NONE MEDICATIONS ADMINISTERED IN THE ER TODAY: NORMAL SALINE IV FLUID MECLIZINE PHENERGAN YOUR PRESCRIPTIONS AND [id number] MEDICATION RECOMMENDATIONS: RECOMMEND MECLIZINE PRESCRIBED FOR DIZZINESS. MAY ALSO USE PHENERGAN PRESCRIBED FOR NAUSEA OR DIZZINESS THAT IS NOT WELL CONTROLLED BY MECLIZINE ALONE. SPECIAL CARE INSTRUCTIONS: SEE ATTACHMENTS FOLLOW-UP RECOMMENDATIONS: RECOMMEND FOLLOW-UP WITH A PRIMARY CARE PROVIDER IN A WEEK, ESPECIALLY IF NO IMPROVEMENT IN SYMPTOMS. TO FOLLOW-UP WITHIN THE [facility], TRY THESE OPTIONS (CLINIC APPOINTMENTS AVAILABLE ON [id number] BASIS): 1. SCHEDULE AN APPOINTMENT ONLINE AT [email or web address] 2. OR CALL THE [facility] AT OR 3. OR CALL YOUR [facility] PHYSICIAN'S OFFICE DIRECTLY IF YOU ARE ALREADY AN ESTABLISHED [facility] PATIENT. ALTERNATIVELY, MAY FOLLOW-UP WITH A CLINIC OF YOUR OWN CHOICE. LOCAL HEALTHCARE RESOURCES ALSO INCLUDE: [facility]; GENERAL CONTACT NUMBER: CLINICS LOCATED IN [facility] (MENTAL HEALTH, SUBSTANCE USE RECOVERY, INTELLECTUAL AND DEVELOPMENTAL DIABILITIES) 24-HOUR CRISIS HOTLINE: [phone] GENERAL CONTACT NUMBER: [phone] CLINICS LOCATED IN [facility] RETURN TO ER FOR WORSENING OF SYMPTOMS. AttachmentsThe following attachments cannot be sent through Care Everywhere. Vertigo, Unspecified (Prydeinig)Meclizine tablets or capsules (Prydeinig) Promethazine tablets (Prydeinig)documented in this encounter ED Notes Delicia Yeung RN - 08/09/2020 7:22 AM CDTPatient c/o dizziness 3 days. Patient reports that he feels like the room is spinning that worsens when he stands up. Patient reports that he was Covid positive 1 month ago. Luke Barbosa MD - 08/09/2020 7:19 AM CDT [facility] Emergency Department Note Patient Name: Cam Perez Date of : 1995 25 year old male Treatment Room: DE1/[facility] Primary Care Physician: PATIENT DOES NOT HAVE A PCP Patient Escorted by: Self [9] Mode of Arrival: Personal means [1] EMS Treatment Prior to ED Arrival: INK GRINDER treatment: None Travel and Exposure Screening: Symptoms Does patient have any of these symptoms?: (not recorded) Exposure Screening Has patient had contact with someone with a communicable disease in the last month?: (not recorded) Diseases exposed to:: (not recorded) Is Patient ?: (not recorded) Exposure Date: (not recorded) Chief Complaint: Chief Complaint Patient presents with Dizziness History of Present Illness: Awoke 08/07 AM with room-spinning dizziness, aggravated with head rotation and position changes, improved with remaining still. Mild gait imbalance today. Nausea with emesis on 08/07 and today x1. No diarrhea. No fever. (+) nasal congestion one month ago. Diagnosed with COVID at that time at [facility]. States symptoms lasted about 3 days then resolved. No headache. No chest pain. No dyspnea. No abdominal pain. No diarrhea. No known sick contact. History of vertigo a couple years ago, resolved without intervention. History provided by: Patient Past Medical History/Immunizations: History reviewed. No pertinent past medical history. Tetanus received in last 5 years: No Allergies: No Known Allergies Past Social History: Substance & Sexual Activity No substance use or sexual activity history on file. Past Surgical History: History reviewed. No pertinent surgical history. Review of Systems: Review of Systems Constitutional: Negative. HENT: Positive for congestion. Eyes: Negative. Respiratory: Negative. Gastrointestinal: Positive for nausea and vomiting. Negative for abdominal pain and diarrhea. Genitourinary: Negative. Musculoskeletal: Negative. Skin: Negative. Neurological: Positive for dizziness. Psychiatric/Behavioral: Negative. Physical Exam: ED Triage Vitals [08/09/20 0723] Weight 99.8 kg (220 lb) Actual or estimated Height BP (!) 170/94 Pulse 74 Resp 16 Temp 36.8 C (98.2 F) Temp source Oral SpO2 99 % Measured on Room air Physical Exam Constitutional: General: He is not in acute distress. Appearance: Normal appearance. He is not ill-appearing, toxic-appearing or diaphoretic. HENT: Head: Normocephalic and atraumatic. Right Ear: External ear normal. Left Ear: External ear normal. Nose: Nose normal. Mouth/Throat: Mouth: Mucous membranes are dry. Pharynx: Oropharynx is clear. No oropharyngeal exudate or posterior oropharyngeal erythema. Eyes: Extraocular Movements: Extraocular movements intact. Conjunctiva/sclera: Conjunctivae normal. Pupils: Pupils are equal, round, and reactive to light. Neck: Musculoskeletal: Normal range of motion. Cardiovascular: Rate and Rhythm: Normal rate and regular rhythm. Pulmonary: Effort: Pulmonary effort is normal. Breath sounds: Normal breath sounds. Abdominal: General: There is no distension. Palpations: Abdomen is soft. Musculoskeletal: Normal range of motion. General: No deformity or signs of injury. Skin: General: Skin is warm and dry. Neurological: General: No focal deficit present. Mental Status: He is alert. Cranial Nerves: No cranial nerve deficit. Motor: No weakness. Psychiatric: Mood and Affect: Mood normal. Radiology: Hospital Encounter on 08/09/20 CT HEAD WO CONTRAST Narrative CT HEAD WO CONTRAST HISTORY: Patient c/o dizziness 3 days. Patient reports that he feels like the room is spinning that worsens when he stands up. COMPARISON: None TECHNIQUE: Noncontrast CT imaging of the head was performed and coronal and sagittal reconstructions were obtained and reviewed. FINDINGS: The ventricles and cerebral sulci are normal in caliber and configuration. No hydrocephalus, midline shift or pathological extra-axial fluid collection is present. The basal cisterns are unremarkable. There is no acute intracranial hemorrhage or significant mass effect. No parenchymal attenuation abnormality. The barron-white matter differentiation is preserved. The mastoid air cells and paranasal air sinuses are clear. The calvarium and central skull base are unremarkable. The ASPECT score is estimated to be 10. Impression No acute intracranial abnormality. Preliminary Report Dictated by Resident: Samm Moura MD., have reviewed this study and agree with the above report. Lab Results (24h): Recent Results (from the past 24 hour(s)) CBC with Differential Collection Time: 08/09/20 7:51 AM Result Value Ref Range WBC 6.10 4.20 - 10.70 10*3/L RBC 5.48 4.26 - 5.52 10*6/L HGB 16.0 12.2 - 16.4 g/dL HCT 47.5 38.4 - 49.3 % MCV 86.7 81.7 - 95.6 fL MCH 29.2 26.1 - 32.7 pg MCHC 33.7 31.2 - 35.0 g/dL RDW-SD 37.7 (L) 38.5 - 51.6 fL RDW-CV 11.8 (L) 12.1 - 15.4 % PLT 265 150 - 328 10*3/L MPV 10.7 9.8 - 13.0 fL NRBC/100 WBC 0.0 0.0 - 10.0 /100 WBCs NRBC x10^3 <0.01 10*3/L GRAN MAT (NEUT) % 57.5 % IMM GRAN % 0.20 % LYMPH % 32.3 % MONO % 7.4 % EOS % 2.1 % BASO % 0.5 % GRAN MAT x10^3(ANC) 3.51 1.99 - 6.95 10*3/uL IMM GRAN x10^3 <0.03 0.00 - 0.06 10*3/uL LYMPH x10^3 1.97 1.09 - 3.23 10*3/uL MONO x10^3 0.45 0.36 - 1.02 10*3/uL EOS x10^3 0.13 0.06 - 0.53 10*3/uL BASO x10^3 0.03 0.01 - 0.09 10*3/uL Basic Metabolic Panel (NA, K, CL, CO2, GLUCOSE, BUN, CREATININE, CA) Collection Time: 08/09/20 7:51 AM Result Value Ref Range NA 140 135 - 145 mmol/L K 3.8 3.5 - 5.0 mmol/L CL 103 98 - 108 mmol/L CO2 TOTAL 27 23 - 31 mmol/L AGAP 10 2 - 16 BUN 14 7 - 23 mg/dL GLUCOSE 99 70 - 110 mg/dL CREATININE 0.88 0.60 - 1.25 mg/dL CALCIUM 9.9 8.6 - 10.6 mg/dL eGFR Calculation (Non-) 104.7 mL/min/1.73m2 eGFR Calculation () 126.9 mL/min/1.73m2 EKG: none Orders and Treatments: Orders Placed This Encounter Procedures CT HEAD WO CONTRAST CBC with Differential Basic Metabolic Panel (NA, K, CL, CO2, GLUCOSE, BUN, CREATININE, CA) Orders Placed This Encounter Medications NaCl 0.9% (NS) bolus infusion 1,000 mL proMETHazine (PHENERGAN) 12.5 mg in NaCl 0.9% (NS) 50 mL piggyback meclizine (TRAVEL-EASE (MECLIZINE)) tablet 25 mg meclizine 25 mg tablet proMETHazine 25 mg tablet ED COURSE ED Course as of Aug 09 930 Tue Aug 09, [id number] Findings and plan discussed with patient. Likely vertigo. No indication for repeat COVID per CDC due to recent (+) <3 months ago. [RK] 926 Symptoms improved. [RK] ED Course User Index [RK] Luke Barbosa MD MDM: MDM Reviewed: nursing note and vitals Interpretation: labs and CT scan Scoring Tools: No data recorded Diagnosis/Impression: ICD-10-CM ICD-9-CM 1. Vertigo R42 780.4 2. Dizziness R42 780.4 Disposition/Condition: ED Disposition ED Disposition Condition Comment Disch - Home Stable Discharge Medications: Patient's Medications START taking these medications MECLIZINE 25 MG TABLET Take 1 tablet by mouth every 6 (six) hours as needed for Dizziness. PROMETHAZINE 25 MG TABLET Take 1 tablet by mouth every 6 (six) hours as needed for Nausea and Vomiting (N/V) (and/or Dizziness). CONTINUE taking these medications which have NOT CHANGED No medications on file START taking Modified Medications as Prescribed No medications on file STOP taking these medications No medications on file Follow-up: PCP Electronically signed by: Luke Barbosa MD 08/09/2020 7:45 AM documented in this encounter Miscellaneous Notes ED Nurse Note - Tiny Trujillo RN - 08/09/2020 9:41 AM CDTDischarge instructions/prscribed medications reviewed with pt with verbalized understanding. NAD, respirations even and unlabored, AOX4, ambulatory out of ED with a steady gait. documented in this encounter Plan of Treatment Health Maintenance Due Date Last Done Comments VARICELLA VACCINES (1 of 2 - 1995 2-dose childhood series) HPV VACCINES (1 - Male 2-dose 2005 series) Depression Screening 2006 DTaP,Tdap,and Td Vaccines (1 - 2013 06/25/2015 Tdap) INFLUENZA VACCINE (#1) 2020 PNEUMOCOCCAL 0-64 YEARS COMBINED Aged Out No longer eligible based on SERIES patient's age to complete this topic documented as of this encounter Procedures Procedure Name Priority Date/Time Associated Diagnosis Comme nts CT HEAD WO CONTRAST STAT 08/09/2020 8:53 AM Dizziness R esults for this CDT procedure are i n the results section. CBC WITH DIFF STAT 08/09/2020 7:51 AM Dizziness Results for this CDT procedure are i n the results section. BASIC METABOLIC STAT 08/09/2020 7:51 AM Dizziness Resul ts for this PANEL (NA, K, CL, CDT procedure are in CO2, GLUCOSE, BUN, the resul ts CREATININE, CA) section. EKG-12 LEAD Routine 08/09/2020 7:23 AM CDT NOTICE OF PRIVACY Routine 08/09/2020 7:18 AM PRACTICES CDT documented in this encounter Results CT HEAD WO CONTRAST (08/09/2020 8:53 AM CDT) Specimen Impressions Performed At PACS/VR/DOSE No acute intracranial abnormality. Preliminary Report Dictated by Resident: Samm Moura MD., have reviewed this stud y and agree with the above report. Narrative Performed At CT HEAD WO CONTRAST PACS/VR/DOSE HISTORY: Patient c/o dizziness 3 days. Patient reports that he feels like the room is spinning that worsens when h e stands up. COMPARISON: None TECHNIQUE: Noncontrast CT imaging of the head was perf ormed and coronal and sagittal reconstructions were obtained a nd reviewed. FINDINGS: The ventricles and cerebral sulci are normal in calibe r and configuration. No hydrocephalus, midline shift or patho logical extra-axial fluid collection is present. The basal cistern s are unremarkable. There is no acute intracranial hemorrhag e or significant mass effect. No parenchymal attenuation abnormality. The barron-white ma tter differentiation is preserved. The mastoid air cells and paranasal air sinuses are clear. The calvarium and central skull base are unremarkable. The ASPECT score is estimated to be 10. Procedure Note [facility], Radiant Results Inft User - 2019 9:[address] HEAD WO CONTRAST HISTORY: Patient c/o dizziness 3 days. P atient reports that he feels like the room is spinning that worsens when h e stands up. COMPARISON: None TECHNIQUE: Noncontrast CT imaging of the head was performed and coronal and sagittal reconstructions were obtained a nd reviewed. FINDINGS: The ventricles and cerebral sulci are no rmal in caliber and configuration. No hydrocephalus, midline shift or patho logical extra-axial fluid collection is present. The basal cistern s are unremarkable. There is no acute intracranial hemorrhag e or significant mass effect. No parenchymal attenuation abnormality. The barron-white matter differentiation is preserved. The mastoid air cells and paranasal air sinuses are clear. The calvarium and central skull base are unremarkable. The ASPECT score is estimated to be 10. IMPRESSION No acute intracranial abnormality. Preliminary Report Dictated by Resident: Jerman Jacobo I, Samm Leyva MD., have revie wed this study and agree with the above report. Performing Organization Address City/State/Zipcode Phone Number PACS/VR/DOSE Basic Metabolic Panel (NA, K, CL, CO2, GLUCOSE, BUN, CREATININE, CA) (08/09/2020 7:51 AM CDT) Pathologist Sig nature NA 140 135 - 145 mmol/L [facility] K 3.8 3.5 - 5.0 mmol/L [facility] CL 103 98 - 108 mmol/L [facility] CO2 TOTAL 27 23 - 31 mmol/L [facility] AGAP 10 2 - 16 [facility] BUN 14 7 - 23 mg/dL [facility] GLUCOSE 99 70 - 110 mg/dL [facility] CREATININE 0.88 0.60 - 1.25 [facility] mg/dL [facility] CALCIUM 9.9 8.6 - 10.6 mg/dL [facility] eGFR Calculation 104.7 mL/min/1.73m2 [facility] (Non-) [facility] eGFR Calculation 126.9 mL/min/1.73m2 [facility] () [facility] Specimen Blood - ARM, LEFT Narrative Performed At [facility] of Glomerular Filtration Rate (GFR) [facility] and Staging of Kidney Disease* + + +- + | GFR (mL/min/1.73 m2) | With Kidney Damage | Without Kidney Damage + + +- + | >90 | Stage one | Normal + + +- + | 60-89 | Stage two | Decreased GFR + + +- + | 30-59 | Stage three | Stage three + + +- + | 15-29 | Stage four | Stage four + + +- + | <15 (or dialysis) | Stage five | Stage five + + +- + *Each stage assumes the associated GFR level has been in effect for at least three months. Stages 1 to 5, with or without kidney disease, indicate chronic kidney disease. Notes: Determination of stages one and two (with eGFR >59mL/min/1.73 m2) requires estimation of kidney damage for at least three months as defined by structural or functional abnormalities of the kidney, manifested by either: Pathological abnormalities or Markers of kidney damage (including abnormalities in the composition of the blood or urine or abnormalities in imaging tests). Performing Organization Address City/State/Zipcode Phone Number [facility] CLIA: [id number] [place] [address] CBC with Differential (08/09/2020 7:51 AM CDT) [facility] WBC 6.10 4.20 - 10.70 [facility] 10*3/L [facility] RBC 5.48 4.26 - 5.52 [facility] 10*6/L [facility] HGB 16.0 12.2 - 16.4 [facility] g/dL [facility] HCT 47.5 38.4 - 49.3 % [facility] MCV 86.7 81.7 - 95.6 fL [facility] MCH 29.2 26.1 - 32.7 pg [facility] MCHC 33.7 31.2 - 35.0 [facility] g/dL [facility] RDW-SD 37.7 (L) 38.5 - 51.6 fL [facility] RDW-CV 11.8 (L) 12.1 - 15.4 % [facility] PLT 265 150 - 328 [facility] 10*3/L [facility] MPV 10.7 9.8 - 13.0 fL [facility] NRBC/100 WBC 0.0 0.0 - 10.0 /100 [facility] WBCs [facility] NRBC x10^3 <0.01 10*3/L [facility] GRAN MAT (NEUT) % 57.5 % [facility] IMM GRAN % 0.20 % [facility] LYMPH % 32.3 % [facility] MONO % 7.4 % [facility] EOS % 2.1 % [facility] BASO % 0.5 % [facility] GRAN MAT x10^3(ANC) 3.51 1.99 - 6.95 [facility] 10*3/uL [facility] IMM GRAN x10^3 <0.03 0.00 - 0.06 [facility] 10*3/uL [facility] LYMPH x10^3 1.97 1.09 - 3.23 [facility] 10*3/uL [facility] MONO x10^3 0.45 0.36 - 1.02 [facility] 10*3/uL [facility] EOS x10^3 0.13 0.06 - 0.53 [facility] 10*3/uL [facility] BASO x10^3 0.03 0.01 - 0.09 [facility] 10*3/uL [facility] Specimen Blood - ARM, LEFT Performing Organization Address City/State/Zipcode Phone Number [facility] CLIA: [id number] [place] [address] documented in this encounter Visit Diagnoses Diagnosis Vertigo - Primary Dizziness and giddiness Dizziness Dizziness and giddiness documented in this encounter Administered Medications Medication Order MAR Action Action Date Dose Rate Site meclizine (TRAVEL-EASE Given 08/09/2020 8:00 AM CDT 25 mg (MECLIZINE)) tablet 25 mg 25 mg, Oral, ONCE, 1 dose, [facility] 08/09/20 at 0900, JACQUE NaCl 0.9% (NS) bolus infusion New Bag 08/09/2020 8:03 AM CDT 1,000 mL 999 mL/hr 1,000 mL at 999 mL/hr, 1,000 mL, IV Infusion, ONCE, 1 dose, 08/09/20 at 0800, JACQUE proMETHazine (PHENERGAN) 12.5 mg in NaCl Given 08/09/2020 8:03 AM CDT 12.5 mg 0.9% (NS) 50 mL piggyback 12.5 mg, IV Piggyback, ONCE, 1 dose, [facility] 08/09/20 at 0900, 50 mL documented in this encounter documented as of this encounter"
== END 2020-08-12 00:43 | disposition home or self-care (01) ==
LOC: ER 21:35
DX: H81.4 Vertigo of central origin (principal); G90.09 Other idiopathic peripheral autonomic neuropathy; F17.210 Nicotine dependence, cigarettes, uncomplicated
CPT/HCPCS: 36415; 70450; 72125; 80048; 80076; 83735; 83880; 84484; 85025; 85610; 93005; 99284

== ENCOUNTER 2021-06-11 08:40 | Emergency (ER) | payer OTHER, SELFPAY ==
--- NOTE | 2021-06-11 09:29 | RAD REPORT ---
EXAM DESCRIPTION: CT - CTHCSPWOC - 06/11/2021 9:08 am CLINICAL HISTORY: Trauma, head and neck injury. PAIN COMPARISON: Head C Spine Mpr Wo Con dated 08/11/2020; Facial Bones W/ Mpr dated 06/11/2021 TECHNIQUE: Axial 5 mm thick images of the head were obtained. Axial 2 mm thick images of the cervical spine were obtained with sagittal and coronal reconstruction images generated and reviewed. All CT scans are performed using dose optimization technique as appropriate and may include automated exposure control or mA/KV adjustment according to patient size. FINDINGS: CT HEAD WITHOUT CONTRAST: No acute hemorrhage, hydrocephalus or extra-axial collection is identified.No areas of brain edema or midline shift. Mild multifocal sinus opacification seen.The calvarium is intact. CT CERVICAL SPINE WITHOUT CONTRAST: No fracture or subluxation.No prevertebral soft tissues swelling is identified. IMPRESSION: No acute intracranial or cervical spine findings.
--- NOTE | 2021-06-11 09:33 | RAD REPORT ---
EXAM DESCRIPTION: CT - CTFB CLINICAL HISTORY: FACIAL PAIN Trauma jaw pain COMPARISON: No comparisons TECHNIQUE: Axial 2 mm thick images of the face were obtained with sagittal and coronal reconstructio n images. All CT scans are performed using dose optimization technique as appropriate and may include automated exposure control or mA/KV adjustment according to patient size. FINDINGS: No acute facial bone fracture is seen.The mandible is intact. The globes and orbital contents are grossly unremarkable.Mild multifocal paranasal sinus opacificatio n. IMPRESSION: Negative for facial bone fracture.
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
[2021-06-11 09:50] VITALS: BP 117/69; TEMP 99; O2SAT 98
== END 2021-06-11 09:43 | disposition home or self-care (01) ==
LOC: ER 08:40
DX: S00.03XA Contusion of scalp, initial encounter (principal); Y04.2XXA Assault by strike against or bumped into by another person, initial encounter; Y92.009 Unspecified place in unspecified non-institutional (private) residence as the place of occurrence of the external cause
CPT/HCPCS: 70450; 70486; 72125; 76377; 99283